=== PATIENT | male | born 1955 | race Caucasian/White ===

== ENCOUNTER → 2019-12-18 | Outpatient (CLI) | payer OTHER ==
--- NOTE | 2019-12-24 09:28 | SLEEPHOME ---
DATE: 12/18/2019 ORDERED BY: FE [facility]ak[facility] home sleep testing was performed due to concern for the obstructive sleep apnea syndrome. For testing, a nocturnal T3 respiratory monitoring device was used. Continuous record was made of pulse, oxygen saturation, air flow, chest and abdominal strain, and body position. Nine hours and 59 minutes of data were reviewed. There were 4 hours and 25 minutes marked as time in bed. During the interval marked time in bed, there were 127 respiratory events identified of 10 seconds in duration or greater for a respiratory event index of 28.7. The events were primarily obstructive. Baseline pulse rate was 64. Pulse rate ranged 56 to 171. Baseline saturation was 94%. Saturations fell to 71%. Testing was performed in both the supine and nonsupine positions. IMPRESSION: Abnormal home sleep testing with repetitive respiratory events and oxygen desaturations to 71% and a respiratory disturbance of 28.7 is consistent with the obstructive sleep apnea syndrome. RECOMMENDATION: The patient should be encouraged to undergo a formal sleep evaluation. [facility]
== END ==
LOC: M SLEEP HO 12:44
PROVIDERS: ATTEND Physician Assistant
DX: G47.33 Obstructive sleep apnea (adult) (pediatric) (principal)

== ENCOUNTER 2022-08-02 22:16 | Observation (INO) | payer OTHER ==
[~2022-08-02] VITALS: Ht 170.2 cm; Wt 108.7 kg
[~2022-08-02 22:16] MED LIST: bisoproloL fumarate 5 MG TAB PO SCH
[2022-08-02 23:50] VITALS: BP 137/85
[2022-08-03] MEDS ORDERED: ACETAMINOPHEN TAB 650MG DOSE (2X325MG) PO PRN (01:00)
[2022-08-03] MEDS ORDERED: ONDANSETRON 4MG 2ML VIAL IV PRN (01:00)
[2022-08-03] MEDS ORDERED: UNRESOLVED CLARIFICATION ENTRY XX STA (01:02)
[2022-08-03] MEDS ORDERED: BISO5TAB14 PO (02:05)
[2022-08-03] MEDS ORDERED: ATOR40TA75 PO (02:05)
[2022-08-03] MEDS ORDERED: HYDR-3490 PO (02:05)
[2022-08-03] MEDS ORDERED: OMEP1CAP73 PO (02:05)
[2022-08-03] MEDS ORDERED: ASPI-161 PO (02:05)
[2022-08-03] MEDS ORDERED: SYNT100T PO (02:05)
[2022-08-03] MEDS ORDERED: HOME MED LIST COMPLETE! XX SCH (02:10)
[2022-08-03 05:30] VITALS: BP 136/81
[2022-08-03] MEDS ORDERED: LEVOTHYROXINE 100MCG TABLET (0.1MG) PO SCH (06:00)
[2022-08-03 06:25] LABS: BASO % 0.4 % (0.0-1.0); EOS # 0.1 10^3/uL (0.0-0.5); EOS % 0.7 % (0.0-3.0); HEMATOCRIT 44.9 % (42.0-52.0); HEMOGLOBIN 15.4 g/dl (13.5-17.5); LYMPH # 3.4 10^3/uL (1.5-5.0); LYMPH % 36.1 % (24.0-44.0); MEAN CORPUSCULAR HEMOGLOBIN 32.4 pg (27.0-33.0); MEAN CORPUSCULAR HGB CONC 34.3 g/dl (32.0-36.5); MEAN CORPUSCULAR VOLUME 94.3 fl (80.0-96.0); MONO # 0.7 10^3/uL (0.0-0.8); MONO % 7.1 % (2.0-8.0); NEUTROPHILS # 5.2 10^3/uL (1.5-8.5); NEUTROPHILS % 55.4 % (36.0-66.0); PLATELET COUNT, AUTOMATED 263 10^3/uL (150-450); RED BLOOD COUNT 4.76 10^6/uL (4.30-6.10); WHITE BLOOD COUNT 9.3 10^3/uL (4.0-10.0)
[2022-08-03 07:04] LABS: BLOOD UREA NITROGEN 22 MG/DL (9-23); CALCIUM LEVEL 8.5 MG/DL (8.3-10.6); CARBON DIOXIDE LEVEL 30 MMOL/L (20-31); CHLORIDE LEVEL 105 MMOL/L (98-107); CREATININE FOR GFR 1.12 MG/DL (0.70-1.30); GLOMERULAR FILTRATION RATE > 60.0 (>49); GLUCOSE, FASTING 89 MG/DL (74-106); MAGNESIUM LEVEL 1.9 MG/DL (1.8-2.4); POTASSIUM SERUM 3.8 MMOL/L (3.5-5.1); SODIUM LEVEL 142 MMOL/L (136-145)
[2022-08-03] MEDS ORDERED: MECLIZINE 25 MG TABLET PO SCH (09:00)
[2022-08-03] MEDS ORDERED: ASPIRIN 81MG ENTERIC TABLET PO SCH (09:00)
[2022-08-03] MEDS ORDERED: ENOXAPARIN 40MG/0.4ML SYRINGE (J1650 PER 10MG) SC SCH (09:00)
[2022-08-03] MEDS ORDERED: OMEPRAZOLE 20MG CAP PO SCH (09:00)
[2022-08-03] MEDS ORDERED: LORazepam 0.5 MG TAB PO SCH (09:00)
[2022-08-03] MEDS ORDERED: MECL-86 PO (10:23)
[2022-08-03] MEDS ORDERED: ATORVASTATIN 20 MG TAB PO SCH (21:00)
== END 2022-08-03 11:21 | disposition home or self-care (01) ==
LOC: M MSPAV 23:44
PROVIDERS: ADMIT Internal Medicine; ATTEND Internal Medicine
DX: R42 Dizziness and giddiness (principal); H81.10 Benign paroxysmal vertigo, unspecified ear; I10 Essential (primary) hypertension; E78.5 Hyperlipidemia, unspecified; E03.9 Hypothyroidism, unspecified; K21.9 Gastro-esophageal reflux disease without esophagitis; Z79.899 Other long term (current) drug therapy
CPT/HCPCS: 36415; 70551; 80048; 83735; 85025; 96372; 97112; 97161; J1650

== ENCOUNTER → 2023-11-16 | Outpatient (CLI) | payer MEDICARE, OTHER ==
[~2023-11-16] MED LIST changes: +ASPI-615 PO; +ATOR40TA75 PO; +BISO5TAB14 PO; +HYDR-3490 PO; +MECL-86 PO; +OMEP1CAP73 PO; +SYNT100T PO; -bisoproloL fumarate 5 MG TAB PO SCH
== END ==
LOC: M SLEEP HO 11:10
PROVIDERS: ATTEND Internal Medicine Cardiovascular Disease
DX: G47.33 Obstructive sleep apnea (adult) (pediatric) (principal)

== ENCOUNTER → 2024-01-02 | Outpatient (CLI) | payer MEDICARE, OTHER | LOC: M CARPUL 08:23 | PROVIDERS: ATTEND Internal Medicine Cardiovascular Disease | DX: I25.10 Atherosclerotic heart disease of native coronary artery without angina pectoris (principal) ==

== ENCOUNTER → 2024-02-09 | Outpatient (CLI) | payer MEDICARE, OTHER | LOC: M PLAIMG 09:42 | PROVIDERS: ATTEND Internal Medicine Cardiovascular Disease | DX: R06.02 Shortness of breath (principal); R94.31 Abnormal electrocardiogram [ECG] [EKG]; R60.0 Localized edema; I36.1 Nonrheumatic tricuspid (valve) insufficiency ==

== ENCOUNTER → 2024-03-27 | Outpatient (CLI) | payer MEDICARE, OTHER | LOC: M RAD 07:51 | PROVIDERS: ATTEND Internal Medicine Nephrology | DX: R33.9 Retention of urine, unspecified (principal); N28.1 Cyst of kidney, acquired; N18.31 Chronic kidney disease, stage 3a; I70.1 Atherosclerosis of renal artery ==